=== PATIENT | female | born 1965 | race Caucasian/White ===

== ENCOUNTER 2025-03-17 14:34 | Outpatient (AMB) | payer OTHER, SELFPAY ==
--- NOTE | 2025-03-17 14:37 | A.OFFVIS_ITS ---
Vital Signs 03/17/25 14:40 Height 5 ft 4 in Weight 222 lb 10.67 oz BMI 38.2 BP 120/70 Blood Pressure Location Lt brachial Position Sitting Pulse 96 Intake Visit Reasons: TOOL AND DIE REPAIR/ new PCP/ htn/hyperlipidemia/family hx Intake Note: New patient fx htn hyperlipidemia family history [employer] Member Required: No Allergies No Known Allergies Allergy (Verified 03/17/25 14:53) Medication List - Last Reconciled 03/17/25 by Sheldon Florence MD cholecalciferol (vitamin D3) 50 mcg PO DAILY tirzepatide (weight loss) (Zepbound) 2.5 mg subcut QWEEK HPI Comments Details: Thao was referred here for cardiovascular risk stratification as well as hyperlipidemia. She is a pleasant 59-year-old female with prior history of hysterectomy about a year and half ago currently on estrogen replacement therapy. Patient also history of hyperlipidemia and obesity with metabolic syndrome. She was started on Zepbound about 8 months ago and since then has lost about 30-35 lb. She is feeling a lot better. Strong family history of atrial fibrillation in her sibling as well as her dad as well as history of atherosclerosis in her parent and in his brother. Patient is concerned about underlying cardiovascular disease. After hysterectomy and prior to hormonal replacement therapy she was getting significant symptoms of palpitation which she describes as strong heartbeats/skipped heartbeats. Since hormone replacement therapy with symptoms of palpitation have completely dissipated. She denies any significant symptoms exertional chest pain or shortness of breath. No orthopnea, PND, leg edema. She is noted to have borderline hyperlipidemia in his advise statin therapy but she has not started and wants to further risk stratify prior to starting any statin therapy. Review of Systems Const Denies chills, Denies daytime sleepiness, Denies fatigue, Denies fever(s), Denies frequent falls, Denies poor appetite, Denies snoring, Denies stops breathing during sleep, Denies weakness, Denies weight gain and Denies weight loss Eyes Denies loss of vision ENT Denies dizziness and Denies hearing loss Card Denies chest pain, Denies claudication, Denies leg edema, Denies lightheadedness, Denies palpitations, Denies dyspnea, Denies dyspnea on exertion and Denies orthopnea Resp Denies cough, Denies excessive phlegm production, Denies dyspnea, Denies dyspnea on exertion, Denies snoring and Denies wheezing GI Denies abdominal pain, Denies hematochezia, Denies change in bowel habits, Denies nausea and Denies vomiting Denies urinary frequency and Denies dysuria Musc Denies arthralgias, Denies muscle weakness, Denies numbness and Denies other (frequent falls) Skin/Breast Denies nail changes and Denies rash Neuro Denies Abnormal speech present, Denies dizziness, Denies frequent falls, Denies loss of vision, Denies memory loss, Denies numbness and Denies weakness Psych Denies depression and Denies memory loss Endo Denies fatigue and Denies palpitations Evaristo/Lymph Reports easy bruising and Reports other (anemia) Aller/Immun Denies wheezing Physical Exam Vital Signs: Last Vital Signs Pulse 96 03/17/25 14:40 BP 120/70 03/17/25 14:40 BMI result Body Mass Index 38.2 Const General: cooperative, comfortable, no acute distress, alert, awake, Physically active and well groomed Nutritional Appearance: obese Orientation/consciousness: patient oriented x3 Limitations: no limitations HEENT Head: Yes normocephalic and Yes atraumatic Neck Neck: Yes trachea midline, Yes supple and Yes no JVD Carotids: no bruits Resp Effort & Inspection: normal respiratory effort Auscultation: clear to auscultation bilaterally Cardio Jugular venous distension: no JVD Palpation: normal PMI Rate: regular rate Rhythm: regular rhythm Heart sounds: S1 normal heart sound present, S2 normal heart sound present, no click, no gallops, no murmurs and no rubs GI Auscultation: normal bowel sounds Skin General skin exam: no rashes or lesions noted Neuro General: patient oriented x3 and no focal motor deficits Speech: No Abnormal speech present Extrem General: Yes no clubbing, cyanosis or edema Psych Appearance: grossly normal Office Procedures EKG Details: EKG shows normal sinus rhythm with low-voltage QRS with septal infarct pattern as well as small Q-waves in high lateral leads. [id number], Complete Assessment & Plan Assessment & Plan (1) Abnormal EKG: Code(s): R94.31 - Abnormal electrocardiogram [ECG] [EKG] Category: Medical Plan: Abnormal EKG most likely due to body habitus rather than any abnormal underlying cardiovascular disease. She does have strong family history. Will suggest an echocardiogram to assess for in his significant wall motion abnormality as well as to assess for LV systolic and diastolic function. Further testing based on the findings of echocardiogram. If this is within normal limits no further workup would be necessary at that point in time I have recommended to continue participate in weight loss program. (2) Hyperlipidemia: Code(s): E78.5 - Hyperlipidemia, unspecified Category: Medical Plan: Hyperlipidemia with metabolic syndrome related to it. She has achieved significant weight loss and wants to continue pursue weight loss program. Given her family history of suggest her to undergo coronary calcium score to assess for presence of underlying coronary atherosclerosis which may then direct very aggressive therapy. We discussed about potential risk stratification based on the findings of the coronary calcium score and then decide. I have advised her to send me her most recent lipid panel. Further treatment based on finding of coronary calcium score. Thank you for allowing me to partake in his care. Orders: Orders CA echo transthoracic complete Today R94.31 - Abnormal electrocardiogram [ECG] [EKG] CT Coronary Calcium Score 1 Week E78.5 - Hyperlipidemia, unspecified Coding Level of Care Code New Pt Level 4 (10211) Complex EM visit Add On G2211 Diagnoses Abnormal EKG R94.31 Hyperlipidemia E78.5 CPT Codes EKG - CPT: 02042-[id number], Complete ([id number])
[2025-03-17 14:40] VITALS: BP 120/70; PULSE 96; BMI 38.2
--- OUTSIDE RECORDS SUMMARY | 2025-03-17 15:51 | XMS_ITS | Data Portability ---
Author Organization [facility], , [facility] Address [address] [place] [address] Care Team Providers Care Template Inspector Name Role Phone VINCE GRANT OTHER Assessment No assessment recorded. Plan of Treatment Reminders Order Date Submit Date Provider Last Modified By Organization Details Last Modified Time Details Appointments New Patient- 30 2025 09:45A M Mine Cuello MD Not available Not available Not available Lab vitamin D, 25-hydro xy, total, serum [address] [facility], [address] [place] [address], [id number], 02/28/2025 14:43:04 lipid panel, serum [address] [facility], [address] [place] [address], [id number], 02/28/2025 14:43:04 HbA1c (hemoglo bin A1c), blood [address] [facility], [address] [place] [address], [id number], 02/28/2025 14:43:04 CMP, serum or plasma [address] [facility], [address] [place] [address], [id number], 02/28/2025 14:43:04 culture, urine 2015 016 [email or web address] [id number] [facility], [address] [place] [address], [id number], 10/01/2016 04:08:00 lipid panel, serum 2015 016 [id number]_[email or web address] [id number] [facility], [address] [place] [address], [id number], 10/01/2016 04:06:07 BMP, serum or plasma 2015 016 [id number]_[email or web address] [id number] [facility], [address] [place], [address], 10/01/2016 04:06:45 Referral None recorded . Procedures None recorded . Surgeries None recorded . Imaging MAMMO, screenin g, digital, bilatera l 2015 016 [id number]_[id number] Not available 10/01/2016 04:06:18 US, abdomen - RUQ pain r/o jackston es. 2015 016 DBA_PATCH_2 [id number] [facility] (Imaging), [address], [place], [address], 10/01/2016 04:06:30 Medication Orders ondanset jim 4 mg disinteg rating tablet [address] [id number], [address], [place], [id number], 02/28/2025 14:43:09 estradio l 0.05 mg/24 hr semiweek ly transder mal patch [address] [facility] #59781, [address], [place], [id number], 02/28/2025 14:30:35 Zepbound 7.5 mg/0.5 mL subcutan eous pen injector [address] [facility] #13899, [address], [place], [id number], 02/28/2025 14:30:33 phenazop yridine 100 mg tablet 2015 016 [facility] [address] ([facility]), [address], [place], [id number], 02/28/2025 14:28:02 Bactrim DS 800 mg-160 mg tablet 2015 016 [facility] [address] ([place] [address]), [address], [place], [id number], 02/28/2025 14:27:58 Patient TargetsNo targets recorded. Patient Instructions Encounter Date Encounter Id Patient Instructions Last Modified By Organization Details Last Modified Time 06/10/2016 [id number] Well Visit, Ages 18 to 65: Care Instructions [id number] Not available 10/01/2016 04:06:18 After a discussion of treatment and medication options, which included consideration of the best practices in medicine, a medical plan was provided. The patient's opinions and concerns were included in this treatment plan and goal. 1. maintain 1200 mg of calcium from food sources daily, calcium food list given 2. take vitamin D 800-1000 units daily to help absorption of calcium into your bones 3. use sunblock consistently 4. review the website: [employer]org to get more information on the Mediterranean diet - a heart healthy eating plan 5. will get fasting labs 6. immunizations updated - Tdap today 8. try to do moderate aerobic physical activity about 30 min each day. GREAT JOB at weight loss! f/u in 6 mos. 9. Health care proxy discussed and form given. Please return to clinic. 10. please check on your siblings - if they had pre-cancerous colon polyps 11. ultrasound of abdomen to r/o gallstones - referral as appropriate 12. avoid fatty foods for now. aneta Not available 06/12/2016 14:24:55 07/16/2016 [id number] urinary tract infection (uti) education Not available 10/01/2016 04:08:00 After a discussion of treatment options, which included consideration of best practices, patient preferences, and the patient? s individual lifestyle and treatment goals, as well as consideration and attempted mitigation of any barriers to meeting the patient? s goals, the following treatment plan and objectives were adopted: - we discussed UTI. will send culture and let you knwo of the results - take antibiotics as prescribed - pyridium as needed for discomfort. this can turn your uirne orange/red - lots of fluids and vitamin C - call for fever, worsening low back pain, or not improving in 48-72 hours [email or web address] Not available 07/16/2016 09:41:48 New medication was discussed with patient including risks, benefits ,possible and expected side effects. Patient understands and is willing to begin medication as prescribed. [email or web address] Not available 07/16/2016 09:40:20 Reason for Referral None Reported. Results Created Date Observation Date Name Description Value Unit Range Abnormal Flag Note LastModifiedBy Organization Detail LastModifiedTime 06/14/20 16 06/14/2016 BMP, serum or plasm a glucose 81 mg/dL 70-100 Not Available [address], [address], 06/14/2016 15:17:07 06/14/20 16 06/14/2016 BMP, serum or plasm a BUN 15 mg/dL 7-18 Not Available [address], [address], 06/14/2016 15:17:07 06/14/20 16 06/14/2016 BMP, serum or plasm a creatinine 0.9 mg/dL 0.8-1. 3 Not Available [address], [address], 06/14/2016 15:17:07 06/14/20 16 06/14/2016 BMP, serum or plasm a B/C 16.7 ratio Not Available [address], [address], 06/14/2016 15:17:07 06/14/20 16 06/14/2016 BMP, serum or plasm a GFR -non 74.9 mL/mi n Recom nishant d GFR by the [place] [facility] >60 mL/mi n/1.7 3m2 - Becky l <60 mL/mi n/1.7 3m2 - Chron ic Kidne y Disea se <15 mL/mi n/1.7 3m2 - Kidne y Failu re Not Available [address], [address], 06/14/2016 15:17:07 06/14/20 16 06/14/2016 BMP, serum or plasm a GFR - if 86.1 mL/mi n For Afric an Ameri can patie nts: Resul ts Multi plied by 1.21 Not Available [address], [address], 06/14/2016 15:17:07 06/14/20 16 06/14/2016 BMP, serum or plasm a sodium 144 mmol/ L 136-14 5 Not Available [address], [address], 06/14/2016 15:17:07 06/14/20 16 06/14/2016 BMP, serum or plasm a potassium 4.7 mmol/ L 3.5-5. 1 Not Available [address], [address], 06/14/2016 15:17:07 06/14/20 16 06/14/2016 BMP, serum or plasm a chloride 106 mmol/ L 96-107 Not Available [address], [address], 06/14/2016 15:17:07 06/14/20 16 06/14/2016 BMP, serum or plasm a anion gap 10.1 5.0-15 .0 Not Available [address], [address], 06/14/2016 15:17:07 06/14/20 16 06/14/2016 BMP, serum or plasm a CO2 28 mmol/ L 21-32 Not Available [address], [address], 06/14/2016 15:17:07 06/14/20 16 06/14/2016 BMP, serum or plasm a calcium 8.8 mg/dL 8.5-10 .3 Not Available [address], [address], 06/14/2016 15:17:07 06/14/20 16 06/14/2016 lipid panel , serum cholesterol 203 mg/dL <200 mg/dl Irena able 200-2 39 mg/dl Borde rline High >240 mg/dl High Not Available [address], [address], 06/14/2016 15:17:07 06/14/20 16 06/14/2016 lipid panel , serum triglyceride s 83 mg/dL <150 mg/dL Becky l 150-1 99 mg/dL Borde rline High 200-4 99 mg/dL High >500 mg/dL Very High Not Available [address], [address], 06/14/2016 15:17:07 06/14/20 16 06/14/2016 lipid panel , serum direct HDL 43 mg/dL Not Available [address], [address], 06/14/2016 15:17:07 06/14/20 16 06/14/2016 LDL, laura burks , serum (OBS) LDL - calculated 143.4 RISK CATEG ORY LDL GOAL _ CHD or CHD Risk Equiv alent s <100 mg/dl (10-y ear risk >20%) 2+ Risk Facto rs <130 mg/dl (10-y ear risk <= 20%) 0-1 Risk Facto r? <160 mg/dl ? Almos t all peopl e with 0-1 risk facto r have a 10 year risk <10%, thus 10 year risk asses ment in peopl e with 0-1 risk facto r is not maggie jenkins. Not Available [address], [address], 06/14/2016 15:17:08 07/16/20 16 07/16/2016 POC UA glu UA Negati ve Not Available [address], [address], 07/16/2016 09:33:05 07/16/20 16 07/16/2016 POC UA clarity UA Cloudy Not Available [address], [address], 07/16/2016 09:33:05 07/16/20 16 07/16/2016 POC UA uro UA 0.2000 Not Available [address], [address], 07/16/2016 09:33:05 07/16/20 16 07/16/2016 POC UA ket UA Negati ve Not Available [address], [address], 07/16/2016 09:33:05 07/16/20 16 07/16/2016 POC UA pro UA 2+ abnormal Not Available [address], [address], 07/16/2016 09:33:05 07/16/20 16 07/16/2016 POC UA nit UA Negati ve Not Available [address], [address], 07/16/2016 09:33:05 07/16/20 16 07/16/2016 POC UA mathieu UA 2+ abnormal Not Available [address], [address], 07/16/2016 09:33:05 07/16/20 16 07/16/2016 POC UA pH UA 6.0000 Not Available [address], [address], 07/16/2016 09:33:05 07/16/20 16 07/16/2016 POC UA SG UA 1.0250 Not Available [address], [address], 07/16/2016 09:33:05 07/16/20 16 07/16/2016 POC UA color UA Yellow Not Available [address], [address], 07/16/2016 09:33:05 07/16/20 16 07/16/2016 POC UA blo UA 3+ abnormal Not Available [address], [address], 07/16/2016 09:33:05 07/16/20 16 07/16/2016 POC UA tavon UA Negati ve Not Available [address], [address], 07/16/2016 09:33:05 07/16/20 16 07/18/2016 cultu re, urine culture, urine, routine CULTU RE, URINE , ROUTI NE MICRO NUMBE R: [id number] TEST STATU S: FINAL SPECI MEN SOURC E: URINE SPECI MEN QUALI TY: ADEQU ATE RESUL T: Three or more organ isms prese nt, each great er than 10,00 0 cu/mL . February repre sent becky l taqueria conta minat ion from exter nal genit sol. No furth er testi ng is requi red. Not Available [facility] [address], [place], [address], 07/18/2016 20:59:21 06/14/20 16 06/14/2016 US, abdom en OBSERV ATION: This is a 50-yea r-old with epigas tric pain. The pancre as is somewh at echoge vishal. No obviou s mass or peripa ncreat ic fluid collec tion is seen. The proxim al aorta is unrema rkable in appear ance. Hepati c echote xture is unrema rkable . No gallst ones, gallbl adder wall thicke albin or biliar y system dilata tion is seen. Specif ically , the common bile duct measur es approx imatel y 3 mm. No hydron ephros is is seen on either side, kidney s measur ing betwee n 11 and 11.5 cm in length . The spleen measur es only 8.5 cm in length . Impres tila: No visibl e pathol ogy. Point of servic [facility] l group Electr onical ly signed Dewey wiseman: Haredep hawkins MD [facility] (Imaging) [address], [place], [address], 06/15/2016 15:16:25 07/08/20 16 07/08/2016 MAMMO , scree albin, digit al, bilat eral No observ ation record ed. [facility] [address] [place], [address], 07/11/2016 12:00:44 07/11/20 16 07/11/2016 NM, hepat obili amberly scan No observ ation record ed. [facility] [address] [place], [address], 08/15/2016 06:37:29 07/11/20 16 07/11/2016 imagi ng/di agnos tic resul t No observ ation record ed. [email or web address] Not Available 2015 11:58:31 07/12/20 16 07/12/2016 imagi ng/di agnos tic resul t No observ ation record ed. [facility] [address] [place], [address], 07/13/2016 14:25:21 07/13/20 16 07/12/2016 XR, upper gastr ointe deena l serie s No observ ation record ed. klopezdelcastil [facility] [address] [place], [address], 07/16/2016 20:04:15 07/21/20 16 07/08/2016 digit al mammo tavon scree n 50-yea r-old female with no curren t breast sympto ms. Compar rhina made to previo us on 06/19/20 08 and 008. No other mammog jonathan for compar rhina limiti ng interp retati on. Interp retati on made in conjun ction with comput er-aid ed detect ion and tomosy nthesi s. There are scatte red areas of fibrog landul ar densit y. There are a few new scatte red puncta te benign -appea ring microc alcifi cation s in the upper outer right breast . There are no suspic ious masses , areas of jim ectura l distor tion, or suspic ious cluste rs of microc alcifi cation s. IMPRES TILA: No mammog raphic eviden ce of malign liliam. Recomm end routin e annual survei llance . BI-RAD S CATEGO RY 2 - BENIGN DENSIT Y B - SCATTE RED FIBROG LANDUL AR POS - CDHDX0 2 Electr onical ly Signed by: KALI HERNANDEZ MD on 016 3:51 PM Techno logist : GIORDA NO, JAGDISH Transc ribed by: Saman jayro, PS360 Result s 2015 03:47 PM Electr onical ly Signed By: KALI SALES MD 2015 03:51 PM klopezdelcastil [facility] [address] [facility], [place], [address], 07/25/2016 04:49:14 07/21/20 16 07/11/2016 nm hepat obili amberly imag/ func COMPAR RHINA: HIDA scan 2007. Tow medica l group abdomi nal ultras ound report 2015. DOSE: 4.9 mCi Tc-99m Cholet ec and 1.8 mcg of CCK and 60 cc of saline infuse d over 60 minute s. Patien t was asympt omatic during infusi on. NUCLEA R MEDICI NE HIDA SCAN WITH CCK FINDIN GS: Normal blood pool cleara nce. Normal hepati c extrac tion of radiot racer with prompt excret ion into the gallbl adder/ biliar y tree within 30 minute s. Normal biliar y to bowel transi t time. Gallbl adder ejecti on fracti on is 97% which is normal . IMPRES TILA: Normal . POS CDHRAD BOARDW S8 Electr onical ly Signed by: KALI HERNANDEZ MD on 016 10:32 AM Techno logist : JUANPABLO HOBSON Transc ribed by: Saman dial PS360 Result s 2015 09:13 AM Electr onical ly Signed By: KALI SALES MD 2015 10:32 AM klopezdelcastil [facility] [address] [place] [address], [address], 07/25/2016 04:49:14 07/21/20 16 07/08/2016 digit al mammo tavon scree n 50-yea r-old female with no curren t breast sympto ms. Compar rhina made to previo us on 06/19/20 08 and 008. No other mammog jonathan for compar rhina limiti ng interp retati on. Interp retati on made in conjun ction with comput er-aid ed detect ion and tomosy nthesi s. There are scatte red areas of fibrog landul ar densit y. There are a few new scatte red puncta te benign -appea ring microc alcifi cation s in the upper outer right breast . There are no suspic ious masses , areas of jim ectura l distor tion, or suspic ious cluste rs of microc alcifi cation s. IMPRES TILA: No mammog raphic eviden ce of malign liliam. Recomm end routin e annual survei llance . BI-RAD S CATEGO RY 2 - BENIGN DENSIT Y B - SCATTE RED FIBROG LANDUL AR POS - CDHDX0 2 Electr onical ly Signed by: KALI HERNANDEZ MD on 016 3:51 PM Techno logist : TOBYA NOJAGDISH Transc ribed by: Saman dial PS360 Result s 2015 03:47 PM Electr onical ly Signed By: KALI SALES MD 2015 03:51 PM klopezdelcastil [facility] [address] [place], [address], 07/25/2016 04:49:14 10/06/20 16 07/12/2016 GI H den COMPAR RHINA: None. UPPER GI SERIES FINDIN GS: [employer] abdome n radiog raph was obtain ed. Mild right coloni c stool volume . Imaged lung bases are clear. Bones are unrema rkable . A double contra st upper GI series was perfor med. Low dose pulsed fluoro scopy was utiliz ed with limite d exposu res to reduce radiat ion dose. Esopha eduardo is normal in contou r and motili ty. Small hiatal hernia . No strict ure, ulcera tion, mass or gastro esopha geal reflux . No gastri c outlet obstru ction, mass, ulcera tion or fold thicke albin. Duoden al bulb and C-swee p are unrema rkable . IMPRES TILA: Small hiatal hernia . Otherw ise normal . POS - CDHRAD BOARDW S2 Electr onical ly Signed by: KALI HERNANDEZ MD on 016 10:56 AM Techno logist : JON ROCHA Transc ribed by: Saman dial PS360 Result s 2015 10:54 AM Electr onical ly Signed By: KALI SALES MD 2015 10:56 AM klopezdelcastil [facility] [address] [place], [address], 07/25/2016 04:49:15 Result Notes None recorded. Problems Name Problem SNOMED Code Status Onset Date Resolution Date Notes Provider Name and Address Organization Details Recorded Time No current problems or disability 254773876 Active Mine Cuello MD [address] [place], [address] , [facility], [place] 6 14:17:44 Common cold 78698315 Completed 200709/04/2013 Not Available [employer] 3 02:00:26 Problem Notes None recorded. Procedures Surgical History Date Name Laterality Status Provider Name and Address Organization Details Recorded Time 07/16/20 16 POC Urinalysis Testing completed Arlene Dale MA [facility] 07/16/2016 09:22:57 hysterectomy completed DEBYB PUGH NP [address] [place], [address], [facility], [place] 02/28/2025 14:26:16 Imaging Results None recorded. Procedure Notes None recorded. Medical Equipment None Reported. Allergies No known drug allergies Medications Name Sig Start Date Stop Date Status Note LastModified by Organization Details LastModified Time Miralax 17 gram/dose oral powder MIX AND DRINK 17GM BY MOUTH DAILY 02/28 completed Not Available Not Available Not Available acetaminoph en 325 mg tablet TAKE 2 TABLETS BY MOUTH EVERY 4 HOURS NEEDED FOR PAIN 02/28 completed Not Available Not Available Not Available atorvastati n 20 mg tablet TAKE 1 TABLET BY MOUTH DAILY 02/28 completed Not Available Not Available Not Available estradiol 0.05 mg/24 hr semiweekly transdermal patch APPLY 1 PATCH TOPICALLY TO THE SKIN 2 TIMES A WEEK active Not Available Not Available No t Available sulfamethox azole 800 mg-trimetho prim 160 mg tablet Take 1 tablet every 12 hours by oral route for 3 days. 02/28 completed Not Available Not Available Not Available phenazopyri dine 100 mg tablet Take 1 tablet 3 times a day by oral route as needed for 2 days. 02/28 completed Not Available Not Available Not Available oxycodone 5 mg capsule TAKE 1 CAPSULE BY MOUTH EVERY 6 HOURS NEEDED FOR PAIN 02/28 completed Not Available Not Available Not Available ibuprofen 600 mg tablet TAKE 1 TABLET BY MOUTH EVERY 6 HOURS active Not Available Not Available No t Available ondansetron 4 mg disintegrat ing tablet DISSOLVE 2 TABLETS ON THE TONGUE TWICE DAILY NEEDED active Not Available Not Available No t Available progesteron e micronized 100 mg capsule TAKE 1 CAPSULE BY MOUTH DAILY AT BEDTIME 02/28 completed Not Available Not Available Not Available coenzyme Q10 100 mg capsule TAKE 1 CAPSULE BY MOUTH DAILY active Not Available Not Available No t Available cholecalcif matt (vitamin D3) 250 mcg (10,000 unit) capsule TAKE 1 CAPSULE BY MOUTH DAILY active Not Available Not Available No t Available Zepbound 5 mg/0.5 mL subcutaneou s pen injector ADMINISTE R 5 MG UNDER THE SKIN 1 TIME WEEKLY 02/28 completed Not Available Not Available Not Available Zepbound 2.5 mg/0.5 mL subcutaneou s pen injector ADMINISTE R 2.5 MG UNDER THE SKIN 1 TIME A WEEK 02/28 completed Not Available Not Available Not Available Zepbound 7.5 mg/0.5 mL subcutaneou s pen injector Inject 7.5 mg every week by subcutane ous route. 2024 active Not Available Not Available Not Avai lable Vitals Date Recorded Body height Body mass index (BMI) Body weight Oxygen saturation Oxygen saturation in Arterial blood by Pulse oximetry Heart rate Systolic blood pressure Diastolic blood pressure Provider Name and Address Organization Details Last Updated DateTime 162.56 cm 38.7 kg/m2 737880. 68 g 97 % 97 % 90 /min 110 mm[Hg] 70 mm[Hg] Gaby Valenzuela [facility] 5 13:51:39 Date Recorded Body height Body weight Body mass index (BMI) Heart rate Systolic blood pressure Diastolic blood pressure Provider Name and Address Organization Details Last Updated DateTime 6 162.56 cm 67669.9 5 g 34.9 kg/m2 72 /min 106 mm[Hg] 68 mm[Hg] Holli Pike [facility] 6 14:55:57 Date Recorded Body height Body weight Body mass index (BMI) Heart rate Body temperature Systolic blood pressure Diastolic blood pressure Provider Name and Address Organization Details Last Updated DateTime 6 162.56 cm 25140.9 5 g 34.9 kg/m2 56 /min 98.1 [degF] 120 mm[Hg] 70 mm[Hg] Arlene Dale [facility] 6 09:24:47 Social History Question Answer Notes LastModified by Organizat ion Details LastModified Time Tobacco Smoking Status Former Smoker quit age 31 Mine Cuello MD [address] [place] [address], [address], [facility], [place] 06/10/2016 15:27:08 Do You Wear A Helmet When Biking? Yes Information not available 06/10/2016 What Type Of Diet Are You Following? REGULAR Information not available 06/10/2016 Which Illicit Or Recreational Drugs Have You Used? None aneta Information not available 06/10/2016 When Did You Quit Smoking? 16+yearssi ncelastcig yarie Information not available 06/10/2016 Are There Any Guns Present In Your Home? No Information not available 06/10/2016 Live Alone Or With Others? With Others [email or web address] Information not available 06/10/2016 Patient Has Health Care Proxy Signed And In Chart No Cash Farris, Form Given 06/10/2016 Information not available 06/10/2016 Marital Status Sreedhar Farris's klhancasthernando Information not available 06/10/2016 Mosquito Repellent Used Routinely No Uses Natural Products Information not available 06/10/2016 How Many Children Do You Have? 2 [email or web address] Information not available 06/10/2016 What Is Your Current Pack Years? 10packyear s 2.5 Years Information not available 06/10/2016 Seat Belts Used Routinely Yes Information not available 06/10/2016 Are You Sexually Active? Yes alvinacastillo Information not available 06/10/2016 Smoke Alarm In Home Yes Information not available 06/10/2016 What Types Of Sporting Activities Do You Participate In? None Information not available 06/10/2016 Do You Use Sunscreen Routinely? Yes Information not available 06/10/2016 Sex: Female Functional Status Question Answer Note LastModified by Organization D etails LastModified Time What is your level of alcohol consumption? None Information not available 06/10/2016 Mental Status None recorded. Family History Relationship Description Onset Age of this Age Resolved Age Notes LastModified by Organization Details LastModified Time Mother Cerebrovascu lar accident 72 klopezdelcast illo Not available 06/10/2016 15:21:27 Mother Hypertensive disorder klopezdelcast illo Not available 06/10/2016 15:21:38 Father Diabetes mellitus klopezdelcast illo Not available 06/10/2016 15:22:10 Father Coronary artery bypass grafts x 4 70 klopezdelcast illo Not available 06/10/2016 15:22:36 Father Psoriasis klopezdelcast illo Not available 06/10/2016 15:22:55 Sister Polyp of colon 50 klopezdelcast illo Not available 06/10/2016 15:23:42 Brother Crohn's disease 20 klopezdelcast hernando Not available 06/10/2016 15:24:32 Notes:gallstones siblings. Medical History No medical history recorded. Gynecological HistoryNo gynecological history recorded. Obstetrics History GPAL:G 0 P 0 0 0 0 Immunizations Vaccine Type Date Status Note Provider Nam e and Address Organization Details Recorded Time Tdap 06/10/2016 completed Not Available [employer] 11/02/2019 02:20:41 Past Encounters Encounter ID Performer Location Encounter Start Date Encounter Closed Date Diagnosis/Indication Diagnosis SNOMED-CT Code Diagnosis ICD10 Code Diagnosis Note [id number] Eli Goel NP , [facility], OFFICE [address] [place] [address] 12/26/2007 13:27:53 11/05/2008 02:02:29 [id number] Mine Cuello MD , [facility], [address] [place] [address] 06/10/2016 14:31:07 06/10/2016 15:45:44 Adult health examination 656934410 Z00.00 see Risk Assessment and Lifestyle Change Counseling section above Counseling 875248469 Z71 .9 Screening mammography 24 972510 Z12.31 Right uppe r quadrant pain 136416951 R10.11 [id number] Shasha Marti NP , [facility], OFFICE [address] [place] [address] 07/16/2016 09:15:21 07/16/2016 09:36:51 Urinary tract infectious disease 82997249 N39.0 Patient instructed to push fluids, to follow up for persistent or worsening symptoms or fever or back pain. [id number] Chris Kilpatrick MD , [facility], [address] [place] [address] 02/28/2025 13:39:11 02/28/2025 16:40:32 Immunization due 220451147 Z23 Shingles: received at [facility] neumo: aware to get at pharmacy Disorder a ssociated with menstruation AND/OR menopause 624156469 N95.9 Metabolic syndrome X 237 [id number] E88.810 Body mass index 30+ - obesity [id number] E66.9 Vitamin D deficiency [id number] [facility] [id number] R11.0 Health Concerns Section Related Observation LastModified by Organization Detai ls LastModified Time None Recorded Concern Status LastModified by Organization Details LastModified Time None Recorded Advance Directives Directive None Recorded Payers Encounter Date Sequence Insurance Name Policy Number Policy Lui Covered Member ID Lui Member ID Guarantor Name 12/26/2007 1 [facility] [id number] Christopher Kaleigh [id number] Thao Kaleigh 06/10/2016 1 [facility] [id number] Christopher Kaleigh [id number] Thao Kaleigh 07/16/2016 1 [facility] [id number] Christopher Kaleigh [id number] Thao Kaleigh 02/28/2025 1 [facility] [id number] Thao Kaleigh [id number] Thao Kaleigh Notes Date Note Type Note Provider Name and Address Organization Details Recorded Time 06/10/20 16 text/htm l Risk Assessment and Lifestyle Change Counseling 18-50Reported bypatient.Coronary Artery Disease Risk Assesment:Family History of Coronary Artery Disease(father, CABG x 4); No personal history of diabetes; No history of peripheral vascular disease, AAA, or carotid disease; No personal history of coronary artery disease; Patient has higher than average risk for coronary artery disease Breast Cancer Risk Assessment:No family history of breast cancer; No history of breast cancer or dcis Lung Cancer Risk Assessment:Has used cigarettes less than 30 pack years;Former smoker quit more than 15 years ago; No asbestos exposure Cognitive/Behavioral Risk Assessment:No personal history of mental illness; No family history of mental illness Safety Risk Assessment:No evidence of abuse/neglect; Do you feel safe in your current relationship?YES; Have you ever been a victim of physical/emotional/sexual abuse?NO Diet:Counseled about appropriate portion size; Counseled about appropriate calcium intake and good dietary sources of calcium.; Counseled about the importance of maintaining a positive calcium balance and taking 1000 iu Vitamin D daily.; Discussed the value of a Mediterranean diet, and eating more fruits and vegetables Exercise counseling:Discussed the importance of daily physical activity; Discussed the importance of weight bearing exercise Safety:Counseled about protecting skin from the sun and lowering the risk of skin cancer; Counseled about use of seat belts Family Planning:Not using control; Does not desire Pt also post ER visit [facility] 06/03/16 - for gallbladder attack, states that she had same symptoms about 10 yrs ago. Labs drawn but pt left due to long wait. Pt states she felt better, so left. Mine Cuello MD [address] [place], [address], [facility] [place], [place] 06/12/2016 14:25:34 07/16/20 16 text/htm l Dysuria urinary symptomsReported bypatient.Duration:Symptoms are constant; Symptoms began 4 days ago Severity:Symptoms improving Associated Symptoms:No urinary frequency; No pressure on urination; No urinary hesitancy; Normal urine stream; No blood in the urine; No fever; No abdominal pain; No blisters on genitals; No rash on genitals;Burning on urination;Flank pain(right) Context:No prior history of STDs; No known exposure to STD pt presents with UTI symptoms for 4 days- hot tub a week ago- low right sided back pain this week- hx of a UTI a very long time ago. no hx of pyelonephritis- no fevers Shasha Marti NP [address] [place], [address], [facility] [place], [place] 07/16/2016 09:42:18 02/29/20 text/htm l 02/28/25New Patient Visit [place] [facility] [employer]2 grown children [facility] includes dermatology annuallyHysterectomy 2023, Rachel Kyle -has known metabolic syndrome, which is currently being managed with zepbound DEBBY PUGH NP [address] [place], [id number], [facility] [place], [place] 02/28/2025 14:44:57 OBGyn Episode No OBEpisode recorded.
== END 2025-03-17 15:23 | disposition home or self-care (01) ==
LOC: HO.HCS 14:35
PROVIDERS: PCP Registered Nurse; Visit Provider Internal Medicine Cardiovascular Disease
DX: R94.31 Abnormal electrocardiogram [ECG] [EKG] (principal); E78.5 Hyperlipidemia, unspecified
CPT/HCPCS: 93010; 99204

== ENCOUNTER → 2025-03-17 14:34 | Outpatient (BNVA) | payer OTHER, SELFPAY | PROVIDERS: PCP Registered Nurse; Visit Provider Internal Medicine Cardiovascular Disease | DX: I10 Essential (primary) hypertension (principal); R94.31 Abnormal electrocardiogram [ECG] [EKG]; E78.5 Hyperlipidemia, unspecified; Z90.710 Acquired absence of both cervix and uterus; Z79.890 Hormone replacement therapy | CPT/HCPCS: 93005 ==

== ENCOUNTER → 2025-04-25 10:08 | Outpatient (REF) | payer OTHER, SELFPAY ==
--- NOTE | 2025-04-25 10:12 | CA_ITS ---
Transthoracic Echocardiogram Patient (Last, First, Middle): Thao Farris, Gender: Female Date of : 1965 Age: 59 Procedure Date: 04/25/2025 Procedure Type: Transthoracic Echocardiogram Location: OP Height: 162.56 cm Weight: 100.7 kg BSA: 2.04 m2 Heart Rate: bpm BP: 118 / 68 mmHg Pot Builder: TO Referring MD: Sheldon Florence MD Symptoms: R94.31 - Abnormal electrocardiogram [ECG] [EKG] Study Quality: Fair/Contrast Conclusions: - Normal left ventricular size, thickness, and systolic function. The visually estimated ejection fraction is between 55-60%. Diastolic function is normal for age. No definite regional wall motion abnormalities. - Normal right ventricular cavity size and systolic function. Findings Procedure Information Contrast agent, definity, is being given per protocol without apparent complications. Left Ventricle Normal left ventricular size, thickness, and systolic function. The visually estimated ejection fraction is between 55-60%. Diastolic function is normal for age. No definite regional wall motion abnormalities. Right Ventricle Normal right ventricular cavity size and systolic function. Atria The left atrium is likely dilated. The right atrium is normal in size. Aortic Valve Normal aortic valve structure and function. There is no aortic valve stenosis. There is no aortic valve regurgitation. Mitral Valve Normal mitral valve structure and function. There is no mitral valve regurgitation. There is no mitral valve stenosis. Pulmonic Valve The pulmonic valve is normal. There is trace pulmonic valve regurgitation. Tricuspid Valve Normal tricuspid valve structure. There is trace tricuspid valve regurgitation. Tricuspid regurgitation envelope is inadequate for calculation of right ventricular systolic pressure. Normal right atrial pressure. Great Vessels All visible segments of the aorta are normal in size. The visualized portions of the pulmonary artery and branches are normal. Venous The inferior vena cava is normal in size and collapses greater than 50% with inspiration. Pericardium/Pleural There is no evidence of pericardial effusion. Prior Study Comparison No prior study available for comparison. Measurements 2D Linear Measurements IVSd: 0.96 0.6-0.9/0.6-1.0 cm LVIDd: 4.91 3.9-5.3/4.2-5.9 cm LVIDd Index: 2.41 2.4-3.2/2.2-3.1 cm/m2 LVIDs: 3.31 2.0-3.6 cm LVPWd: 0.78 0.7-1.1 cm LA Diam: 3.60 2.7-3.8/3.0-4.0 cm LAIDs Index: 1.76 1.5-2.3 cm/m2 LV Mass: 182.74 67-162/88-224 g LV Mass Index: 89.58 43-95/49-115 g/m2 LVOT Diam: 2.20 3.0+(-)1.3 cm 2D Systolic Function EF 4C: 56.30 >55% EF 2C: 59.50 >55% EF BiP: 57.20 >55% Mitral Valve MV Pk E: 0.58 MV PK A: 0.46 MV Decel Time: 270.00 E/A: 1.30 E'Lateral: 9.14 E'Medial: 8.05 E/E' Med: 7.20 E/E' Lat: 6.40 PHT: 79.00 MVA PHT: 2.78 Decel Sherman: 2.16 Aortic Valve AoV Pk Jeff: 1.51 AoV Mn Jeff: 0.95 AoV VTI: 0.30 AoV Pk Grad: 9.00 Aov Mn Grad: 4.00 RUBÉN Cont.VTI: 2.58 LVOT LVOT Pk Jeff: 1.01 LVOT Mn Jeff: 0.59 LVOT VTI: 0.20 LVOT Pk Grad: 4.00 LVOT Mn Grad: 2.00 LVOT Diam: 2.20 LVOT Area: 3.80 Diastolic Function MV Pk E: 0.58 MV Pk A: 0.46 E/A: 1.30 E'Medial: 8.05 E/E' Med: 7.20 E' Laterial: 9.14 E/E' Lat: 6.40 Right Ventricle TAPSE (mm): 26.50 TVS' Jeff: 11.10 Tricuspid Valve RA Press: 3.00 Great Vessels Aorta Sinus of Valsalva: 2.79 2.0-3.5 cm Ao Asc: 2.80 2.1-3.4 cm Updated in Other Vendor System with Status of Final Louis Medel MD electronically signed on 04/28/2025 11:33:17 AM with status of Final
--- OUTSIDE RECORDS SUMMARY | 2025-04-25 10:41 | XMS_ITS | Data Portability ---
Author Organization 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 Plan of Treatment Reminders Order Date Submit Date Provider Last Modified By Organization Details Last Modified Time Details Appointments New Patient- 2025 09:45A M Mine Cuello MD Not available Not available Not available Lab vitamin D, 25-hydro xy, total, serum 2024 025 [facility], [address] [place] [address], [id number], 03/27/2025 14:38:05 lipid panel, serum 2024 025 [facility], [address] [place] [address], [id number], 03/27/2025 14:38:05 HbA1c (hemoglo bin A1c), blood 2024 025 [facility], [address] [place] [address], [id number], 03/27/2025 14:38:05 CMP, serum or plasma 2024 025 [facility], [address] [place] [address], [id number], 03/27/2025 14:38:05 culture, urine 2015 016 DBA_PATCH_2 [id number] [facility], [address] [place] [address], [address], 10/01/2016 04:08:00 lipid panel, serum 2015 016 DBA_PATCH_2 [id number] [facility], [address] [place] [address], [address], 10/01/2016 04:06:07 BMP, serum or plasma 2015 016 DBA_PATCH_2 [id number] [facility], [address] [place] [address], [address], 10/01/2016 04:06:45 Referral None recorded . Procedures None recorded . Surgeries None recorded . Imaging MAMMO, screenin g, digital, bilatera l 2015 016 DBA_PATCH_2 [id number] Not available 10/01/2016 04:06:18 US, abdomen - RUQ pain r/o gallston es. 2015 016 DBA_PATCH_2 [id number] [facility] (Imaging), [address] , [place], [address], 10/01/2016 04:06:30 Medication Orders ondanset jim 4 mg disinteg rating tablet 2024 025 [facility][id number], [address], [place], [id number], 02/28/2025 14:43:09 estradio l 0.05 mg/24 hr semiweek ly transder mal patch 2024 025 [facility] #[id number], [address], [place], [id number], 02/28/2025 14:30:35 Zepbound 7.5 mg/0.5 mL subcutan eous pen injector 2024 025 [facility] #[id number], [address], [place], [id number], 02/28/2025 14:30:33 phenazop yridine 100 mg tablet 2015 016 [facility] [address] ([facility]), [address] [place] [address], [place], [id number], 02/28/2025 14:28:02 Bactrim DS 800 mg-160 mg tablet 2015 016 [facility] [address] ([place] [address]), [address], [place], [phone], 02/28/2025 14:27:58 Patient TargetsNo targets recorded. Patient Instructions Encounter Date Encounter Id Patient Instructions Last Modified By Organization Details Last Modified Time 06/10/2016 [id number] Well Visit, Ages 18 to 65: Care Instructions Not available 10/01/2016 04:06:18 After a discussion [...] use sunblock consistently 4. review the website: CrossCurrent.org to get more information on the Mediterranean [...] now. aneta Not available 06/12/2016 14:24:55 07/16/2016 [id number] urinary tract infection (uti) education Not available 10/01/2016 04:08:00 After a discussion of treatment options, which included consideration of best practices, patient preferences, and the patient s individual lifestyle and treatment goals, as well as consideration and attempted mitigation of any barriers to meeting the patient s goals, the following treatment plan and [...] a glucose 81 mg/dL 70-100 Not Available [address], [address], 06/14/2016 15:17:07 06/14/20 16 06/14/2016 BMP, serum or plasm a BUN 15 mg/dL 7-18 Not Available [address], [address], 06/14/2016 15:17:07 06/14/20 16 06/14/2016 BMP, serum or plasm a creatinine 0.9 mg/dL 0.8-1. 3 Not Available [address], [address], 06/14/2016 15:17:07 06/14/20 16 06/14/2016 BMP, serum or plasm a B/C 16.7 ratio Not Available [address], [address], 06/14/2016 15:17:07 06/14/20 16 06/14/2016 BMP, serum or plasm a GFR -non 74.9 mL/mi n Recom nishant d GFR by the [place] [facility] Found ation >60 mL/mi n/1.7 3m2 - Becky l <60 mL/mi n/1.7 3m2 - Chron ic Kidne y Disea se <15 mL/mi n/1.7 3m2 - Kidne y Failu re Not Available [address], [address], 06/14/2016 15:17:07 06/14/20 16 06/14/2016 BMP, serum or plasm a GFR - if 86.1 mL/mi n For Afric an Ameri can patie nts: Resul ts Multi plied by 1.21 Not Available [address], [address], 06/14/2016 15:17:07 06/14/20 16 06/14/2016 BMP, serum or plasm a sodium 144 mmol/ L 136-14 5 Not Available [address], [address], 06/14/2016 15:17:07 06/14/20 16 06/14/2016 BMP, serum or plasm a potassium 4.7 mmol/ L 3.5-5. 1 Not Available [address], [address], 06/14/2016 15:17:07 06/14/20 16 06/14/2016 BMP, serum or plasm a chloride 106 mmol/ L 96-107 Not Available [address], [address], 06/14/2016 15:17:07 06/14/20 16 06/14/2016 BMP, serum or plasm a anion gap 10.1 5.0-15 .0 Not Available [address], [address], 06/14/2016 15:17:07 06/14/20 16 06/14/2016 BMP, serum or plasm a CO2 28 mmol/ L 21-32 Not Available [address], [address], 06/14/2016 15:17:07 06/14/20 16 06/14/2016 BMP, serum or plasm a calcium 8.8 mg/dL 8.5-10 .3 Not Available [address], [address], 06/14/2016 15:17:07 06/14/20 16 06/14/2016 lipid panel , serum cholesterol 203 mg/dL <200 mg/dl Irena able 200-2 39 mg/dl Borde rline High >240 mg/dl High Not Available [address], [address], 06/14/2016 15:17:07 06/14/20 16 06/14/2016 lipid panel , serum triglyceride s 83 mg/dL <150 mg/dL Becky l 150-1 99 mg/dL Borde rline High 200-4 99 mg/dL High >500 mg/dL Very High Not Available [address], [address], 06/14/2016 15:17:07 06/14/20 16 06/14/2016 lipid panel , serum direct HDL 43 mg/dL Not Available [address], [address], 06/14/2016 15:17:07 06/14/20 16 06/14/2016 LDL, laura burks , serum (OBS) LDL - calculated 143.4 RISK CATEG ORY LDL GOAL _ CHD or CHD Risk Equiv alent s <100 mg/dl (10-y ear risk >20%) 2+ Risk Facto rs <130 mg/dl (10-y ear risk <= 20%) 0-1 Risk Facto r <160 mg/dl Almo st all peopl e with 0-1 risk facto r have a 10 year risk <10%, thus 10 year risk asses ment in peopl e with 0-1 risk facto r is not neces gregory. Not Available [address], [address], 06/14/2016 15:17:08 07/16/20 16 07/16/2016 POC UA glu UA Negati ve Not Available [address], [address], 07/16/2016 09:33:05 07/16/20 16 07/16/2016 POC UA clarity UA Cloudy Not Available [address], [address], 07/16/2016 09:33:05 07/16/20 16 07/16/2016 POC UA uro UA 0.2000 Not Available [address], [address], 07/16/2016 09:33:05 07/16/20 16 07/16/2016 POC UA ket UA Negati ve Not Available [address], [address], 07/16/2016 09:33:05 07/16/20 16 07/16/2016 POC UA pro UA 2+ abnormal Not Available [address], [address], 07/16/2016 09:33:05 07/16/20 16 07/16/2016 POC UA nit UA Negati ve Not Available [address], [address], 07/16/2016 09:33:05 07/16/20 16 07/16/2016 POC UA mathieu UA 2+ abnormal Not Available [address], [address], 07/16/2016 09:33:05 07/16/20 16 07/16/2016 POC UA pH UA 6.0000 Not Available [address], [address], 07/16/2016 09:33:05 07/16/20 16 07/16/2016 POC UA SG UA 1.0250 Not Available [address], [address], 07/16/2016 09:33:05 07/16/20 16 07/16/2016 POC UA color UA Yellow Not Available [address], [address], 07/16/2016 09:33:05 07/16/20 16 07/16/2016 POC UA blo UA 3+ abnormal Not Available [address], [address], 07/16/2016 09:33:05 07/16/20 16 07/16/2016 POC UA tavon UA Negati ve Not Available [facility] [address] [place], [address], 07/16/2016 09:33:05 07/16/20 16 07/18/2016 cultu re, urine culture, urine, routine CULTU RE, URINE , ROUTI NE MICRO NUMBE R: [id number] TEST STATU S: FINAL SPECI MEN SOURC E: URINE SPECI MEN QUALI TY: ADEQU ATE RESUL T: Three or more organ isms prese nt, each great er than 10,00 0 cu/mL . May repre sent becky l taqueria conta minat ion from exter nal genit sol. No furth er testi ng is requi red. Not Available [facility] [address], [place], [address], 07/18/2016 20:59:21 06/14/20 16 06/14/2016 US, abdom [...] No visibl e pathol ogy. [facility] Electr onical ly signed Dewey wiseman: Hardeep hawkins MD [facility] (Imaging) [address] , [place], [address], 06/15/2016 15:16:25 07/08/20 16 07/08/2016 MAMMO , scree albin, digit al, bilat eral No observ ation record ed. [facility] [address] [place], [address], 07/11/2016 12:00:44 07/11/20 16 07/11/2016 NM, hepat obili amberly scan No observ ation record ed. [facility] [address] [place], [address], 08/15/2016 06:37:29 07/11/20 16 07/11/2016 imagi ng/di agnos tic resul t No observ ation record ed. [email or web address] Not Available 2015 11:58:31 07/12/20 16 07/12/2016 imagi ng/di agnos tic resul t No observ ation record ed. [facility] [address] [place], [address], 07/13/2016 14:25:21 07/13/20 16 07/12/2016 XR, upper gastr ointe deena l serie s No observ ation record ed. [email or web address] [facility] [address] [place], [address], 07/16/2016 20:04:15 07/21/20 16 07/08/2016 digit al [...] : GIORDA NO, JAGDISH Transc ribed by: Interf jayro, PS360 Result s 2015 03:47 PM Electr onical ly Signed By: KALI SALES MD 2015 03:51 PM [email or web address] [facility] [address] [facility], [place], [address], 07/25/2016 04:49:14 07/21/20 16 07/11/2016 nm hepat obili amberly imag/ func COMPAR RHINA: HIDA scan 2007. [facility] abdomi nal ultras ound [...] : JUANPABLO HOBSON Transc ribed by: Saman dial, PS360 Result s 2015 09:13 AM Electr onical ly Signed By: KALI SALES MD 2015 10:32 AM [email or web address] [facility] [address] [place] [address], [address], 07/25/2016 04:49:14 07/21/20 16 07/08/2016 digit al [...] on 016 3:51 PM Techno logist : SONALI JAGDISH LIRA Transc ribed by: Saman dial, PS360 Result s 2015 03:47 PM Electr onical ly Signed By: KALI SALES MD 2015 03:51 PM [email or web address] [facility] [address] [place], [address], 07/25/2016 04:49:14 07/21/20 16 07/12/2016 GI H den COMPAR RHINA: None. UPPER GI SERIES FINDIN GS: Engine Oiler abdome n radiog raph was obtain ed. [...] : JON ROCHA Transc ribed by: Saman dial, PS360 Result s 2015 10:54 AM Electr onical ly Signed By: KALI SALES MD 2015 10:56 AM [email or web address] [facility] [address] [place], [address], 07/25/2016 04:49:15 04/03/20 25 06/02/2023 MAMMO , scree albin No observ ation record ed. [email or web address] Not Available 04/03 13:17:21 Result Notes None recorded. Problems Name Problem SNOMED Code Status Onset Date Resolution Date Notes Provider Name and Address Organization Details Recorded Time Mixed hyperlip idemia 477296850 Active 2024 per historic al medical records. LEIGH ANN [facility] 5 12:12:47 [facility] l hyperten tila 41157979 Active 2024 per historic al medical records. LEIGH ANN [facility] 5 12:13:03 Vitamin D deficien cy 25399696 Active 2024 per historic al medical records. LEIGH ANN [facility] 5 12:13:18 Leukocyt osis 310304642 Active 2024 per historic or medical records. LEIGH ANN [facility] 12:13:57 Common cold 18474696 Completed 200709/04/2013 Not Available [facility] 02:00:26 Problem Notes None recorded. Procedures Surgical History Date Name Laterality Status Provider Name and Address Organization Details Recorded Time 06/02/20 23 screening mammography of bilateral breasts completed Bianca Joseph DEPUTY CORONER [facility] 04/03/2025 12:29:49 12/23/19 21 Date of Last Pap Smear completed Bianca JosephLEIGH ANN [facility] 04/03/2025 12:31:32 07/16/20 16 POC Urinalysis Testing completed Arlene Dale [facility] 07/16/2016 09:22:57 hysterectomy completed DEBBY PUGH NP [address] [place] [address], [id number] 02/28/2025 14:26:16 Other (specify) completed Bianca Joseph DEPUTY CORONER [facility] 04/03/2025 12:18:11 extraction of wisdom tooth completed Bianca Joseph DEPUTY CORONER [facility] 04/03/2025 12:18:29 Imaging Results None recorded. Procedure Notes None [...] 7.5 mg/0.5 mL subcutaneou s pen injector active Not Available Not Available Not Available Vitals Date Recorded Body height Body mass index (BMI) Body weight Oxygen saturation Oxygen saturation in Arterial blood by Pulse oximetry Heart rate Systolic And Diastolic Provider Name and Address Organization Details Last Updated DateTime 162.56 cm 38.7 kg/m2 282997. 68 g 97 % 97 % 90 /min 110/70 mm[Hg] Gaby Valenzuela, [facility] 13:51:39 Date Recorded Body height Body weight Body mass index (BMI) Heart rate Systolic And Diastolic Provider Name and Address Organization Details Last Updated DateTime 06/10/2016 162.56 cm 59426.95 g 34.9 kg/m2 72 /min 106/68 mm[Hg] Holli Pike, [facility] 06/10/2016 14:55:57 Date Recorded Body height Body weight Body mass index (BMI) Heart rate Body temperature Systolic And Diastolic Provider Name and Address Organization Details Last Updated DateTime 6 162.56 cm 28222.9 5 g 34.9 kg/m2 56 /min 98.1 [degF] 120/70 mm[Hg] Arlene Dale [facility] 6 09:24:47 Social History Question Answer Notes LastModified by Organizat ion Details LastModified Time Tobacco Smoking Status Former Smoker quit age 31 Mine Cuello MD [address] [place] [address], [phone], [facility] 06/10/2016 15:27:08 Do You Wear A Helmet When Biking? Yes Information not available 06/10/2016 What Type Of Diet Are You Following? REGULAR Information not available 06/10/2016 Which Illicit Or Recreational Drugs Have You Used? None Information not available 06/10/2016 When Did You Quit Smoking? 16+yearssi ncelastcig arette Information not available 06/10/2016 Are There Any Guns Present In Your Home? No Information not available 06/10/2016 Live Alone Or With Others? With Others [email or web address] Information not available 06/10/2016 Patient Has Health Care Proxy Signed And In Chart No Cash Farris, Form Given 06/10/2016 Information not available 06/10/2016 Marital Status Sreedhar Farris's [email or web address] Information not available 06/10/2016 Mosquito Repellent Used Routinely No Uses Natural Products Information not available 06/10/2016 How Many Children Do You Have? 2 Information not available 06/10/2016 What Is Your Current Pack Years? 10packyear s 2.5 Years Information not available 06/10/2016 Seat Belts Used Routinely Yes Information not available 06/10/2016 Are You Sexually Active? Yes Information not available 06/10/2016 Smoke Alarm In [...] LastModified Time Mother Cerebrovascu lar accident 72 [email or web address] illo Not available 06/10/2016 15:21:27 Mother Hypertensive disorder per histor ical medica l record s. Not available 04/03/2025 12:44:11 Mother Depressive disorder per histor ical medica l record s. Not available 04/03/2025 12:44:40 Mother Hyperlipidem ia per histor ical medica l record s. Not available 04/03/2025 12:45:13 Mother Substance dependence Drug abuse - per histor ical medica l record s. Not available 04/03/2025 12:45:54 Mother Degenerative disorder of macula per histor ical medica l record s. Not available 04/03/2025 12:46:27 Father Diabetes mellitus klopezdelcast illo Not available 06/10/2016 15:22:10 Father Coronary artery bypass grafts x 4 70 [email or web address] illo Not available 06/10/2016 15:22:36 Father Psoriasis klopezdelcast illo Not available 06/10/2016 15:22:55 Father Myocardial infarction per histor ical medica l record s. Not available 04/03/2025 12:42:02 Father Heart disease per histor ical medica l record s. Not available 04/03/2025 12:43:03 Father Hypertensive disorder per histor ical medica l record s. Not available 04/03/2025 12:43:48 Father Depressive disorder per histor ical medica l record s. Not available 04/03/2025 12:44:40 Sister Polyp of colon 50 klopezdelcast illo Not available 06/10/2016 15:23:42 Sister Hypothyroidi sm Siste r #3 - per histor ical medica l record s. Not available 04/03/2025 12:38:09 Sister Hypothyroidi sm Siste r #4 - per histor ical medica l record s. Not available 04/03/2025 12:38:09 Sister Alcoholism Siste r #2 - per histor ical medica l record s. Not available 04/03/2025 12:40:02 Sister Atrial fibrillation per histor ical medica l record s. Not available 04/03/2025 12:40:23 Brother Crohn's disease 20 [email or web address] illo Not available 06/10/2016 15:24:32 Brother Alcoholism Broth er #2 - per histor ical medica l record s. Not available 04/03/2025 12:39:42 Brother Alcoholism Broth er #3 - per histor ical medica l record s. Not available 04/03/2025 12:39:42 Brother Heart disease per histor ical medica l record s. Not available 04/03/2025 12:43:27 Brother Neoplasm of prostate Prost ate tumor - per histor ical medica l record s. Not available 04/03/2025 12:48:43 Brother Family member 62 per histor ical medica l record s. Not available 04/03/2025 12:49:48 Paternal Grandfather Myocardial infarction per histor ical medica l record s. Not available 04/03/2025 12:42:02 Paternal Grandfather Family member per histor ical medica l record s. Not available 04/03/2025 12:50:59 Paternal Uncle Myocardial infarction per histor ical medica l record s. Not available 04/03/2025 12:42:14 Paternal Uncle Heart disease per histor ical medica l record s. Not available 04/03/2025 12:43:03 Paternal Uncle Family member per histor ical medica l record s. Not available 04/03/2025 12:51:06 Maternal Grandmother Degenerative disorder of macula per histor ical medica l record s. Not available 04/03/2025 12:46:27 Maternal Grandmother Malignant tumor of stomach per histor ical medica l record s. Not available 04/03/2025 12:47:55 Maternal Grandmother Family member per histor ical medica l record s. Not available 04/03/2025 12:50:36 Paternal Grandmother Malignant tumor of breast per histor ical medica l record s. Not available 04/03/2025 12:47:09 Paternal Grandmother Family member per histor ical medica l record s. Not available 04/03/2025 12:50:52 Maternal Grandfather Malignant neoplasm of prostate per histor ical medica l record s. Not available 04/03/2025 12:47:32 Maternal Grandfather Family member per histor ical medica l record s. Not available 04/03/2025 12:50:46 Notes:gallstones siblings. Medical History Condition Response ENDOCRINE Y OTHER Y Gynecological History Statement/Question Response HPV N Date of Last Pap Smear 12/22/2020 Age at Menarche 17 Date of LMP 12/12/2023 Obstetrics History GPAL:G 0 P 0 0 0 0 Immunizations Vaccine Type Date Status Note Provider Nam e and Address Organization Details Recorded Time zoster recombinant 3 [facility] 11:38:26 influenza, unspecified formulation 1 completed Bianca Josehp LPN null, [facility] 04/03/2025 11:38:52 influenza, unspecified formulation 3 completed [facility] 04/03/2025 11:39:26 SARS-COV-2 (COVID-19) vaccine, UNSPECIFIED 1 completed [facility] 04/03/2025 11:40:06 SARS-COV-2 (COVID-19) vaccine, UNSPECIFIED 1 completed [facility] 04/03/2025 11:40:15 SARS-COV-2 (COVID-19) vaccine, UNSPECIFIED 5 completed Bianca Joseph LEIGH ANN adriana, [facility] 04/03/2025 11:40:24 SARS-COV-2 (COVID-19) vaccine, UNSPECIFIED 1 completed Bianca Joseph LEIGH ANN adriana, [facility] 04/03/2025 11:40:35 Tdap 6 completed Not Available [facility] 11/02/2019 02:20:41 Past Encounters Encounter ID Performer Location Encounter Start Date Encounter Closed Date Diagnosis/Indication Diagnosis SNOMED-CT Code Diagnosis ICD10 Code Diagnosis Note [id number] Eli Goel NP , [facility], OFFICE [address] [place] [phone] 12/26/2007 13:27:53 11/05/2008 02:02:29 [id number] Mine Cuello MD , [facility], OFFICE [address] [place] [address] 06/10/2016 14:31:07 06/10/2016 15:45:44 Adult health examination 044268182 Z00.00 see Risk Assessment and Lifestyle Change Counseling section above Counseling 523063510 Z71 .9 Screening mammography 24 806124 Z12.31 Right uppe r quadrant pain 842754672 R10.11 [id number] JERRELL Paz, [facility], OFFICE [address] [place] [address] 07/16/2016 09:15:21 07/16/2016 09:36:51 Urinary tract infectious disease 23495376 N39.0 Patient instructed to push fluids, to follow up for persistent or worsening symptoms or fever or back pain. [id number] Chris Kilpatrick MD , [facility], OFFICE [address] [place] [phone] 02/28/2025 13:39:11 02/28/2025 16:40:32 Immunization due 688585277 Z23 Shingles: received at [facility]: aware to get at pharmacy Disorder a ssociated with menstruation AND/OR menopause 704931231 N95.9 Metabolic syndrome X 237 995989 E88.810 Body mass index 30+ - obesity 211906022 E66.9 Vitamin D deficiency 347 61248 E55.9 [facility] 266703090 R11.0 Health Concerns Section Related Observation LastModified by Organization Detai ls LastModified Time None Recorded Concern Status LastModified by Organization Details LastModified Time None Recorded Advance Directives Directive None Recorded Payers Insurance Date Sequence Insurance Name Policy Number Policy Lui Covered Member ID Lui Member ID Guarantor Name 01/09/2025 1 [facility] [id number] Sreedhar Kaleigh [id number] Thao Kaleigh 03/03/2016 1 [facility] [id number] Christopher Kaleigh [id number] Thao Kaleigh 02/27/2025 1 [facility] [id number] Thao Kaleigh [id number] Thao Kaleigh Notes Date Note Type Note [...] better, so left. 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
== END ==
LOC: HO.CARD 10:08
PROVIDERS: Visit Provider Internal Medicine Cardiovascular Disease
DX: R94.31 Abnormal electrocardiogram [ECG] [EKG] (principal)
CPT/HCPCS: 93306; Q9957

== ENCOUNTER → 2025-04-25 10:12 | Outpatient (BNV) | payer OTHER, SELFPAY | PROVIDERS: Visit Provider Internal Medicine Cardiovascular Disease | DX: R94.31 Abnormal electrocardiogram [ECG] [EKG] (principal) | CPT/HCPCS: 93306 ==